=== PATIENT | male | born 1975 ===

== ENCOUNTER → 2016-11-16 | Outpatient (CLI) | payer OTHER | END | disposition home or self-care (01) | LOC: C.PATHSPEC 17:12 | PROVIDERS: ATTEND Orthopaedic Surgery | DX: M94.262 Chondromalacia, left knee (principal); M23.42 Loose body in knee, left knee ==

== ENCOUNTER → 2016-11-16 | Outpatient (CLI) | payer OTHER ==
[2016-11-16 19:46] LABS: SYNOVIAL FLUID APPEARANCE CLOUDY; SYNOVIAL FLUID COLOR AMBER
[2016-11-16 19:47] LABS: SYNOVIAL FLUID MONONUC RELAT 57.1 %; SYNOVIAL FLUID POLYNUC RELAT 42.9 %
== END | disposition home or self-care (01) ==
LOC: C.LABSPEC 16:58
PROVIDERS: ATTEND Orthopaedic Surgery
DX: M65.862 Other synovitis and tenosynovitis, left lower leg (principal); M23.42 Loose body in knee, left knee; M22.42 Chondromalacia patellae, left knee